=== PATIENT | female | born 1965 | race African-American/Black ===

== ENCOUNTER 2022-01-17 17:13 | Emergency (ER) | payer BC, MEDICAID ==
[~2022-01-17] VITALS: Ht 162.6 cm; Wt 87.3 kg
[2022-01-17 17:36] LABS: GLUCOSE,POINT OF CARE 122 MG/DL (70-110)
[2022-01-17] MEDS ORDERED: METF-1211 PO (18:14)
[2022-01-17] MEDS ORDERED: CHL25 PO (18:14)
[2022-01-17 18:37] LABS: COVID AG,FIA SOURCE NASOPHARYNGEAL
[2022-01-17 19:13] LABS: INFLUENZA TYPE A NEGATIVE FOR TYPE A (NEGATIVE); INFLUENZA TYPE B NEGATIVE FOR TYPE B (NEGATIVE)
[2022-01-17] MEDS ORDERED: OXYMETAZOLINE HCL 0.05% 15 ML NASAL SPRAY NASAL ONE (19:30)
[2022-01-17] MEDS ORDERED: BENZ-70 PO (19:43)
[2022-01-17 20:09] VITALS: BP 123/66
== END 2022-01-17 20:12 | disposition home or self-care (01) ==
LOC: EMS 17:13
DX: J06.9 Acute upper respiratory infection, unspecified (principal); E11.9 Type 2 diabetes mellitus without complications; I10 Essential (primary) hypertension; Z96.659 Presence of unspecified artificial knee joint; Z90.710 Acquired absence of both cervix and uterus; Z98.890 Other specified postprocedural states; Z20.822 Contact with and (suspected) exposure to COVID-19
CPT/HCPCS: 71045; 82962; 87804; 99284

== ENCOUNTER 2023-02-13 23:50 | Emergency (ER) | payer BC, MEDICAID ==
[~2023-02-13] VITALS: Ht 167.6 cm; Wt 95.0 kg
[~2023-02-13 23:50] MED LIST: ASPI81 PO; ATOR20TA PO; BENZ-227 PO; CHL25 PO; DICL100G60 TP; METF-1211 PO; OMEP20 PO
[2023-02-14 00:04] VITALS: TEMP 98.2
[2023-02-14 01:04] LABS: COVID AG,FIA SOURCE NASAL SWAB
[2023-02-14 01:15] VITALS: BP 138/92; PULSE 71; RESP 17
[2023-02-14 01:27] LABS: INFLUENZA TYPE A NEGATIVE FOR TYPE A (NEGATIVE); INFLUENZA TYPE B NEGATIVE FOR TYPE B (NEGATIVE); SARS-COV2 (COVID) ANTIGEN,FIA Negative (Negative)
[2023-02-14] MEDS ORDERED: AMOXICILLIN TRIHYDRATE 250 MG CAPSULE PO ONE (04:00)
[2023-02-14] MEDS ORDERED: ALBUTEROL SULFATE HFA 90 MCG/PUFF 8 GM INHALER IH ONE (04:00)
[2023-02-14] MEDS ORDERED: AMOX250C4 PO (04:11)
[2023-02-14 09:33] LABS: GLUCOMETER DEV NAME(LOC) ER.6; GLUCOSE,POINT OF CARE 128 MG/DL (70-110)
== END 2023-02-14 04:35 | disposition home or self-care (01) ==
LOC: EMS 23:51
DX: J06.9 Acute upper respiratory infection, unspecified (principal); J32.9 Chronic sinusitis, unspecified; E11.9 Type 2 diabetes mellitus without complications; I10 Essential (primary) hypertension; Z96.659 Presence of unspecified artificial knee joint; Z90.710 Acquired absence of both cervix and uterus; Z20.822 Contact with and (suspected) exposure to COVID-19
CPT/HCPCS: 99284; 87426; 82962; 87804; 71045; J3535